=== PATIENT | female | born 1985 | race Caucasian/White ===

== ENCOUNTER 2017-02-06 20:46 | Emergency (ER) | payer SELFPAY ==
--- NOTE | ~2017-02-06 | ER ---
[facility] 31 Y [address] ROOM: [place] [address] LOCATION: ED ADMIT DATE: 02/06/2017 ER/Outpatient Report DISCHARGE DATE: 02/06/2017 FAMILY PHYSICIAN: PHYSICIAN, NO ATTENDING PHYSICIAN: Tommy Rios Time of Patient Arrival: 2046 hours. Time of Patient Evaluation: 2100 hours. CHIEF COMPLAINT: Chest pain, difficulty breathing, upper abdominal pain. HISTORY OF PRESENT ILLNESS: This is a 31-year-old female who presents to the ER, who states that for the past 45 minutes she has had midepigastric abdominal pain and it makes her feel short of breath. She states she has had some diarrhea yesterday and a dry cough today. They do not know if she has been running any fevers at home. She states she has never had pain like this before in her abdomen. She states does radiate into her back. She did not take anything for her discomfort prior to arrival. The patient did have one episode of emesis prior to her arrival as well. ALLERGIES: NO KNOWN ALLERGIES. MEDICATIONS: None. PAST MEDICAL HISTORY: Negative. PAST SURGERIES: None. SOCIAL HISTORY: She smokes 7 to 8 cigarettes a day. Denies any drug or alcohol use. REVIEW OF SYSTEMS: A 10-point review of systems was completed and was negative with the exception of those discussed in the HPI. PHYSICAL EXAMINATION: VITAL SIGNS: Height 5 feet 2 inches stated, weight 109.7 kg taken, blood pressure is 141/76, pulse 104, respirations 24, temperature 99.7 degrees tympanically, and saturations 100% on room air. Grabill Coma Score is 15. PATIENT'S NAME: VALE NAJERA [facility] AGE: 31 Y [address] ROOM: [place] [address] LOCATION: [facility] ADMIT DATE: 02/06/2017 ER/Outpatient Report DISCHARGE DATE: 02/06/2017 FAMILY PHYSICIAN: PHYSICIAN, NO ATTENDING PHYSICIAN: Tommy Rios GENERAL: Alert, obese female, in mild distress. HEENT. Head: Normocephalic. Eyes: Pupils are equal and reactive to light. She does display moist mucous membranes. LUNGS: Clear to auscultation bilaterally. No wheezes or crackles. Normal respiratory effort. HEART: Slightly tachycardic. Normal rhythm. No lifts, thrills, or murmurs. ABDOMEN: Soft. She has tenderness in her midepigastric region with palpation. No guarding or rebound tenderness. She has good bowel sounds throughout. No masses were palpated. EXTREMITIES: No clubbing, cyanosis, or edema. Full range of motion of all limbs. LABORATORY DATA: CBC: White count is 12.3, hemoglobin is 14.3, platelets 440. INR is 0.9. Amylase 58, lipase 147. CPK is 901, CK-MB is 7.0. Second set of cardiac enzymes CPK is 854, CK-MB is 6.9, troponin is less than 0.040. CMS: Sodium 138, potassium is 3.4, otherwise unremarkable. TSH is 3.100. Ultrasound shows cholelithiasis with no evidence for acute cholecystitis. She has a fatty liver. EKG with normal sinus rhythm. X-rays, no acute infiltrate was seen. IMPRESSION: Midepigastric abdominal pain with ultrasound findings of cholelithiasis. ASSESSMENT AND PLAN: We did monitor the patient here for quite some time. The patient did have an IV started. The patient was given a liter of IV fluids along with 2 mg of morphine and a total of 8 mg of Zofran for her nausea and pain. We will dismiss the patient to home with prescriptions for [place] and Zofran to use as directed. She needs to drink small amounts of fluids frequently, may eat a bland diet. No fatty foods, and I like her to follow up with her primary care physician for followup care. The patient and patient's family understand and agree with care. FREDO WILSON PA-C FOR MD ENOCH SANCHEZ/shahzad /[id number] d: 02/09/177 t: 02/22/17 1829, OUTPATIENT REPORT
[2017-02-06 21:17] LABS: BASOPHIL # 0.1 K/uL (0.0-0.2); BASOPHIL % 0.4 %; EOSINOPHIL # 0.3 K/uL (0.0-0.5); EOSINOPHIL % 2.7 %; HEMATOCRIT 41.7 % (33.0-46.0); HEMOGLOBIN 14.3 g/dL (11.0-15.0); IMMATURE GRANULOCYTE % 0.3 %; LYMPHOCYTE # 2.6 K/uL (0.8-4.0); LYMPHOCYTE % 21.1 %; MCH 28.5 pg (27.0-34.0); MCHC 34.3 gm/dL (32.0-36.5); MCV 83.2 fl (83.0-98.0); MONOCYTE # 0.7 K/uL (0.0-1.0); MPV 9.5 fl (9.4-12.4); NEUTROPHIL # (ANC) 8.6 K/uL (1.8-7.8); NEUTROPHIL % 69.5 %; NRBC % 0 /100WBC (0-0.00); PLATELET COUNT 440 K/uL (150-450); RBC 5.01 M/uL (3.50-5.50); RDW-CV 12.9 % (11.9-14.6); WBC 12.3 K/uL (4.0-11.0)
[2017-02-06 21:24] LABS: INR - (THERAPEUTIC) 0.9 (0.9-1.1); PROTIME 9.8 SECONDS (9.6-11.1); PTT 30 SECONDS (25-32)
[2017-02-06 21:37] LABS: ALBUMIN 3.9 gm/dL (3.5-5.0); ALK PHOS 81 IU/L (33-138); ALT 43 IU/L (12-78); ANION GAP 11.4 (10.0-19.0); AST 37 IU/L (10-40); BLOOD UREA NITROGEN 14 mg/dL (6-24); CALCIUM 9.2 mg/dL (8.5-10.5); CHLORIDE 103 mMol/L (96-110); CO2 27 mMol/L (22-32); CPK 901 IU/L (21-215); ESTIMATED GFR (MDRD EQUATION) > 60; MAGNESIUM 1.9 mg/dL (1.3-2.6); POTASSIUM 3.4 mMol/L (3.7-5.1); SODIUM 138 mMol/L (135-145); TOTAL BILIRUBIN 0.5 mg/dL (0.0-1.5); TOTAL PROTEIN 7.3 g/dL (6.0-8.4)
[2017-02-06 23:13] LABS: CPK 854 IU/L (21-215)
[2017-02-07] MEDS ORDERED: ALEVE220 M1 PO (12:53)
[2017-02-07] MEDS ORDERED: NORCO 5-325 TA1 EACH PO (16:08)
== END 2017-02-06 23:29 | disposition disaster alternative care site (69) ==
LOC: GMED 20:46
PROVIDERS: Emergency Medicine
DX: K80.20 Calculus of gallbladder without cholecystitis without obstruction (principal); F17.210 Nicotine dependence, cigarettes, uncomplicated
CPT/HCPCS: J2270; J2405; J7030

== ENCOUNTER → 2017-02-07 | Day surgery (SDC) | payer SELFPAY ==
[~2017-02-07] VITALS: Ht 157.5 cm; Wt 110.0 kg
[~2017-02-07] MED LIST: ALEVE220 M1 PO; NORCO 5-325 TA1 EACH PO
--- NOTE | ~2017-02-07 | OR ---
PATIENT'S NAME: VALE NAJERA [facility] AGE: 31 Y [address] ROOM: [place] [address] LOCATION: [facility] [place], [place] ADMIT DATE: 02/07/2017 OR/Procedure Report DISCHARGE DATE: FAMILY PHYSICIAN: PHYSICIAN, NO ATTENDING PHYSICIAN: Roseann Hudson SURGEON: Roseann Hudson MD SOLUTIONS MANAGER: Ashwini Peña PA-C. DATE OF PROCEDURE: 02/07/2017 Corrected DOS PER SURGERY SCHEDULE 03/24/17 AO PREOPERATIVE DIAGNOSIS: Acute cholecystitis and cholelithiasis. POSTOPERATIVE DIAGNOSES: 1. Acute cholecystitis and cholelithiasis. 2. Normal common bile duct. PROCEDURE PERFORMED: Laparoscopic cholecystectomy with intraoperative cholangiogram. ANESTHESIA: General. ESTIMATED BLOOD LOSS: Less than 20 mL. SPECIMEN: Gallbladder with stones. CHOLANGIOGRAM FINDINGS: Correct anatomy identified. Normal cholangiogram in regard to no evidence of dilation of the common bile duct. No filling defects. Free flow of contrast into the duodenum. INDICATION: The patient is a 31-year-old young lady presented to clinic on 02/07/2017 after being seen in the emergency room the evening before with abdominal pain. She had elevated white count 52458. Liver function tests were normal. Hemoglobin was normal. The patient had an ultrasound, which showed packed full of stones but no evidence of acute inflammatory changes. Common bile duct was estimated to be 5 mm. The patient was still having symptoms of abdominal pain and was in fact on physical examination, very tender in the right upper quadrant and positive Richardson sign with inspiration. It was felt, she needs to have her gallbladder at this time. She has been n.p.o. and she agrees to be admitted to the hospital for such procedure, benefits, and risk. DESCRIPTION OF PROCEDURE: After informed consent, the patient was taken to the operating room. After general endotracheal anesthesia, the patient's abdomen was prepped and draped into a sterile field. A time-out was performed. We confirmed the patient's name, planned procedure, and administration of preop antibiotics. Local anesthetic 1:1 mixture 0.5% PATIENT'S NAME: VALE NAJERA [facility] AGE: 31 Y [address] ROOM: [place] [address] LOCATION: [facility] [place], [place] ADMIT DATE: 02/07/2017 OR/Procedure Report DISCHARGE DATE: FAMILY PHYSICIAN: PHYSICIAN, NO ATTENDING PHYSICIAN: Roseann Hudson Marcaine with 1% Xylocaine was instilled prior to each incision, a total 25 mils. I made the first one below the umbilicus and carried down to identify the anterior fascia through which a Veress needle inserted. A saline test performed and then pneumoperitoneum created. An 11 mm trocar and camera were inserted and safe entry into the peritoneal cavity was noted under direct vision. The remaining trocars were placed. The gallbladder was pale, inflamed and edematous. We grabbed the fundus and retracted it cephalad. We stripped down adhesions to the free gallbladder wall down to identify the infundibulum. It was packed full of stones. We then in order increase our critical view of safety, we took down the lateral reflection of the gallbladder to the liver bed. This helped opened up the triangle. We dissected down the inflammatory tissue and dilated large cystic duct lymph node and we were able to get circumferential control around the cystic duct proximally near the infundibulum. It was felt to be dilated and we elected to do a cholangiogram to: 1. Assess for common duct stone. 2. Clearly identify our anatomy due to inflammatory changes. We made a small cystotomy in the duct. We placed our cholangiogram catheter, used Isovue-300 contrast, and performed a cholangiogram without incident and normal findings were interpreted. We removed the cholangiogram catheter and clipped the duct x3 distally. We then dissected out the cystic artery, clipped it near the gallbladder x3 and divided. The gallbladder was removed in retrograde fashion from the liver bed with electrocautery. Bleeding points cauterized along the way. Once the gallbladder removed. We placed into an EndoCatch bag and brought out through the umbilical incision. We then copiously irrigated the right upper quadrant. We inspected the gallbladder fossa. There was no evidence of bleeding. The clips were intact. No bile leak. We removed the trocars under direct vision. We used the Endo Stitch to close the fascia defect at the subxiphoid location. We used 0 Vicryl. We then released the final pneumoperitoneum after all trocars were out, closed the umbilical fascial defect with 0 Vicryl and skin closed with subcuticular 4- 0 Vicryl. Steri-Strips and sterile dressings were applied. The patient tolerated the procedure well and transferred to recovery in stable condition. ROSEANN HUDSON MD WTS/modl /[id number] Corrected DOS PER SURGERY SCHEDULE 03/24/17 AO d: 02/21/17 1237 t: 03/31/17 1142, OPERATIVE SUMMARY
[2017-02-07 13:52] LABS: ALBUMIN 3.4 gm/dL (3.5-5.0); ALK PHOS 69 IU/L (33-138); ALT 42 IU/L (12-78); AST 38 IU/L (10-40); TOTAL PROTEIN 6.6 g/dL (6.0-8.4)
[2017-02-07 13:55] LABS: TOTAL BILIRUBIN 0.7 mg/dL (0.0-1.5)
== END | disposition disaster alternative care site (69) ==
LOC: GSDC 12:18 → GPOC 13:00
PROVIDERS: Surgery
PROC: 0FT44ZZ Resection of Gallbladder, Percutaneous Endoscopic Approach (ICD-10-PCS; principal; 2017-02-07)
PROC: BF14YZZ Fluoroscopy of Gallbladder, Bile Ducts and Pancreatic Ducts using Other Contrast (ICD-10-PCS; 2017-02-07)
DX: K80.10 Calculus of gallbladder with chronic cholecystitis without obstruction (principal); I10 Essential (primary) hypertension; F17.200 Nicotine dependence, unspecified, uncomplicated; Z98.890 Other specified postprocedural states
CPT/HCPCS: J0694; J2001; J2250; J2405; J3010; J7030

== ENCOUNTER 2017-02-17 12:30 | Emergency (ER) | payer SELFPAY ==
--- NOTE | ~2017-02-17 | ER ---
[facility] AGE: 31 Y [address] ROOM: [place] [address] LOCATION: [facility] ADMIT DATE: 02/17/2017 ER/Outpatient Report DISCHARGE DATE: 02/17/2017 FAMILY PHYSICIAN: , DARION ATTENDING PHYSICIAN: Yvette Greco Time of Arrival: 1230. Time Seen: 1325. IDENTIFICATION: 31-year-old female, seen by Montse Solo third year resident, initially and then I did also see this patient. HISTORY OF PRESENT ILLNESS: The patient is status post laparoscopic colonoscopy per Dr. Ordoñez 02/07. On 02/13, she developed a full cramping pain in her right upper quadrant and mid abdomen radiating to her right flank. She has bruising. She continues to have pain. She tells me that she has had pain since her colonoscopy. No vomiting. She has had one watery stool this morning. No fever. No dysuria. She thinks that she had some blood in her urine. PAST MEDICAL HISTORY: ALLERGIES: NO KNOWN DRUG ALLERGIES. CURRENT MEDICATIONS: Ibuprofen and Tylenol. She did have pain medicine but she said it just made her feel funny and then she did not like how it made her feel and it really did not help much with the pain. So, she has not taken it for a couple of days. MEDICAL PROBLEMS: Denies. PRIOR SURGERIES OR HOSPITALIZATIONS: Just the cholecystectomy. SOCIAL HISTORY: The patient lives in [place]. Tobacco use; half pack per day. Alcohol use, denies. Drug use, denies. FAMILY HISTORY: No pertinent family history. PATIENT'S NAME: [facility] AGE: 31 Y [address] ROOM: [place], [place] [address] LOCATION: ED ADMIT DATE: 02/17/2017 ER/Outpatient Report DISCHARGE DATE: 02/17/2017 FAMILY PHYSICIAN: PHYSICIAN, DARION ATTENDING PHYSICIAN: Yvette Greco REVIEW OF SYSTEMS: All systems reviewed and negative other than what is noted in the HPI. PHYSICAL EXAMINATION: VITAL SIGNS: Height 5 feet 2 inches, weight 106.6 kg, blood pressure 151/72, pulse 100, respirations 16, temperature 98.9, sats 98% on room air. GENERAL: A 31-year-old female, in [id number] distress, although she refuses any pain medication. HEENT: Unremarkable. LUNGS: Clear to auscultation. HEART: Regular rate and rhythm. ABDOMEN: Protuberant. Bowel sounds present. Soft, nondistended, tender to palpation in the right upper abdomen, right mid abdomen, and right flank. She also has ecchymosis noted around her right upper incision. No erythema. No drainage. It is tender to touch. She did not want any pain medications. LABORATORY DATA: Sodium 140, potassium 3.7, chloride 109, CO2 of 24, BUN 11, creatinine 0.9, blood sugar 78. Liver enzymes normal. Hemoglobin 10.4, hematocrit 31.1, platelets 583, white count 7.3, with a normal differential. UA: Specific gravity 1.005, pH 6, 10-20 white cells, 10-20 epithelial cells. Urine, positive for Trichomonas. CT scan of her abdomen and pelvis with IV contrast, post recent laparoscopic cholecystectomy, complex fluid collection in and inferior of the gallbladder fossa probably hematoma, less likely biloma, does not look like an abscess per Radiology. IMPRESSION: 1. Postsurgical hematoma. 2. Trichomoniasis. PLAN: Dr. Goldberg, general surgeon evaluated the patient in the emergency room. Recommended discharge home. Continue Tylenol and ibuprofen for pain and follow up with Dr. Ordoñez on Tuesday as scheduled. The patient was initiated on Flagyl 500 mg b.i.d. for 7 days for her trichomoniasis. Safe sex was discussed and education that her partner needed to be seen and treated was also reviewed. The patient understands and agrees, and all questions have been answered. YVETTE GRECO MD PATIENT'S NAME: VALE NAJERA [facility] AGE: 31 Y [address] ROOM: [place], [place] [address] LOCATION: [facility] ADMIT DATE: 02/17/2017 ER/Outpatient Report DISCHARGE DATE: 02/17/2017 FAMILY PHYSICIAN: PHYSICIAN, NO ATTENDING PHYSICIAN: Yvette Greco CAR/modl /[id number] d: 02/18/17 0002 t: 02/18/17 0800, OUTPATIENT REPORT
[2017-02-17 14:36] LABS: BILIRUBIN URINE NEGATIVE (NEGATIVE); BLOOD URINE 250 /UL (NEGATIVE); COLOR URINE YELLOW (YELLOW); GLUCOSE URINE NEGATIVE (NEGATIVE); KETONE URINE NEGATIVE (NEGATIVE); LEUKOCYTES URINE 100 /UL (NEGATIVE); NITRITE URINE NEGATIVE (NEGATIVE); PROTEIN URINE NEGATIVE (NEGATIVE); SPEC GRAVITY URINE 1.005 (1.003-1.035); TURBIDITY URINE 1+ (CLEAR); UROBILINOGEN URINE NORMAL (NORMAL)
[2017-02-17 14:58] LABS: BASOPHIL % 0.4 %; EOSINOPHIL # 0.3 K/uL (0.0-0.5); EOSINOPHIL % 3.4 %; HEMOGLOBIN 10.4 g/dL (11.0-15.0); IMMATURE GRANULOCYTE % 0.3 %; LYMPHOCYTE # 1.5 K/uL (0.8-4.0); LYMPHOCYTE % 20.1 %; MCV 85.7 fl (83.0-98.0); MONOCYTE # 0.4 K/uL (0.0-1.0); MPV 9.2 fl (9.4-12.4); NEUTROPHIL # (ANC) 5.1 K/uL (1.8-7.8); NEUTROPHIL % 69.8 %; NRBC % 0 /100WBC (0-0.00); RDW-CV 13.7 % (11.9-14.6); WBC 7.3 K/uL (4.0-11.0)
[2017-02-17 14:59] LABS: HEMATOCRIT 31.1 % (33.0-46.0); MCH 28.7 pg (27.0-34.0); MCHC 33.4 gm/dL (32.0-36.5); PLATELET COUNT 583 K/uL (150-450); RBC 3.63 M/uL (3.50-5.50)
[2017-02-17 15:04] LABS: BACTERIA URINE MODERATE (NEGATIVE); RBC URINE RARE #/HPF (NEGATIVE)
[2017-02-17 15:14] LABS: ALBUMIN 3.5 gm/dL (3.5-5.0); ALK PHOS 84 IU/L (33-138); ALT 37 IU/L (12-78); ANION GAP 10.7 (10.0-19.0); AST 33 IU/L (10-40); BLOOD UREA NITROGEN 11 mg/dL (6-24); CALCIUM 8.3 mg/dL (8.5-10.5); CHLORIDE 109 mMol/L (96-110); CO2 24 mMol/L (22-32); CREATININE 0.9 mg/dL (0.5-1.1); POTASSIUM 3.7 mMol/L (3.7-5.1); SODIUM 140 mMol/L (135-145); TOTAL BILIRUBIN 1.2 mg/dL (0.0-1.5)
[2017-02-17 15:15] LABS: ESTIMATED GFR (MDRD EQUATION) > 60
== END 2017-02-17 17:52 | disposition disaster alternative care site (69) ==
LOC: GMED 12:30
PROVIDERS: Family Medicine
DX: K91.870 Postprocedural hematoma of a digestive system organ or structure following a digestive system procedure (principal); A59.9 Trichomoniasis, unspecified; F17.210 Nicotine dependence, cigarettes, uncomplicated
CPT/HCPCS: Q9967